=== PATIENT | female | born 1970 | race Two or more races ===

== ENCOUNTER 2022-03-30 11:55 | Emergency (ER) | payer BC, OTHER ==
[~2022-03-30] VITALS: Ht 172.7 cm; Wt 63.6 kg
[2022-03-30 12:56] VITALS: BP 119/87
[2022-03-30] MEDS ORDERED: TRIA0.02 TOP (14:12)
[2022-03-30] MEDS ORDERED: PRED20TA2 PO (14:12)
== END 2022-03-30 14:32 | disposition home or self-care (01) ==
LOC: ER 11:55
DX: M72.2 Plantar fascial fibromatosis (principal)
CPT/HCPCS: 93971